=== PATIENT | male | born 1955 | race Caucasian/White ===

== ENCOUNTER 2016-12-16 11:24 | Emergency (ER) | payer OTHER ==
[2016-12-16] MEDS ORDERED: Lidocaine 2% Jelly 10 ML Urojet MUCMEM ONE (12:17)
[2016-12-16 13:04] VITALS: BP 138/87
--- NOTE | 2016-12-16 13:16 | EDM.PDOC ---
ED HPI GENERAL MEDICAL PROBLEM - General Chief Complaint: Genitourinary Problem Stated Complaint: NEEDS A CATH Time Seen by Provider: 12/16/16 12:45 Source of Information: Reports: Patient History Limitations: Reports: No Limitations - History of Present Illness INITIAL COMMENTS - FREE TEXT/NARRATIVE: Cristino is a 61 year old male with rectal tumor and urethral compression who presents to the ED today with c/o urinary retention. Patient has been self cathing but this has been increasingly painful the last 2 days. Patient was instructed to presents to the ED per his primary for elkins catheter insertion. Patient denies any other c/o today. - Related Data Allergies Allergy/AdvReac Type Severity Reaction Status Date / Time No Known Allergies Allergy Verified 12/16/16 12:02 Home Meds: Home Meds Omeprazole 12/16/16 [History] Zolpidem Tartrate [Ambien] 12/16/16 [History] Past Medical History Genitourinary History: Reports: Hydronephrosis Oncologic (Cancer) History: Reports: Renal - Past Surgical History HEENT Surgical History: Reports: Adenoidectomy, Tonsillectomy GI Surgical History: Reports: Appendectomy Social & Family History - Tobacco Use Smoking Status *Q: Never Smoker ED ROS GENERAL - Review of Systems Review Of Systems: ROS reveals no pertinent complaints other than HPI. ED EXAM, RENAL/ - Physical Exam Exam: See Below Exam Limited By: No Limitations General Appearance: Alert, WD/WN, No Apparent Distress Ears: Normal External Exam Throat/Mouth: Normal Inspection Respiratory/Chest: No Respiratory Distress Cardiovascular: Regular Rate, Rhythm GI/Abdominal: Normal Bowel Sounds, Soft, Non-Tender (Male) Exam: Normal Inspection, Deferred Rectal (Males) Exam: Normal Exam Neurological: Alert, Oriented, CN II-XII Intact Skin Exam: Warm, Dry, Intact Lymphatic: No Adenopathy Course - Vital Signs Text/Narrative:: Cristino is a 61 year old male with a hx of rectal tumor that is putting pressure on his urethra making urination next to impossible, he has been self cathing with increased pain the last 2 days. Please refer to HPI and focused exam. Patient on exam is well hydrated, he is non-toxic appearing. Elkins placed by RN without difficulty, draining clear urine. UA with few WBC's no leukocyte esterase. Patient given elkins care instructions, follow up with PCP on Saturday, discharged in stable condition. Last Recorded V/S: Last Vital Signs Temp 37 C 12/16/16 13:02 Pulse 63 12/16/16 13:02 Resp 16 12/16/16 13:02 BP 138/87 12/16/16 13:02 Pulse Ox 97 12/16/16 13:02 - Orders/Labs/Meds Orders: Active Orders 24 hr Category Date Time Status Elkins Catheter Insertion [Insert Urinary Catheter] [OM. Care 12/16/16 12:30 Ordered PC] Q24H Urinary Catheter Assessment [RC] ASDIRECTED Care 12/16/16 12:17 Active Labs: Laboratory Tests 12/16/16 Range/Units 12:50 Urine Color Yellow Urine Appearance Clear Urine pH 6.0 (4.5-8.0) Ur Specific Spray 1.020 (1.008-1.030) Urine Protein 30 H (NEGATIVE) mg/dL Urine Glucose (UA) Normal (NEGATIVE) mg/dL Urine Ketones 15 H (NEGATIVE) mg/dL Urine Occult Blood Moderate (NEGATIVE) Urine Nitrite Negative (NEGAITVE) Urine Bilirubin Negative (NEGATIVE) Urine Urobilinogen Normal (NORMAL) mg/dL Ur Leukocyte Esterase Negative (NEGATIVE) Urine RBC 5-10 H (0-5) Urine WBC 5-10 H (0-5) Ur Epithelial Cells Rare Amorphous Sediment Not seen Urine Bacteria Not seen Urine Mucus Not seen Meds: Medications Discontinued Medications Generic Name Dose Route Start Last Admin Trade Name Freq PRN Reason Stop Dose Admin Lidocaine HCl 10 ml 12/16/16 12:17 12/16/16 13:17 Xylocaine 2% Jelly MUCMEM 12/16/16 12:18 10 ml ONETIME ONE Administration Departure - Departure Time of Disposition: 13:30 Disposition: Home, Self-Care 01 Condition: Good Clinical Impression: Urinary retention - Discharge Information Instructions: Elkins Catheter Care, Adult Referrals: PCP,None [Primary Care Provider] - Forms: ED Department Discharge Additional Instructions: Call primary on Saturday for follow up. - My Orders Last 24 Hours: My Active Orders 12/16/16 12:17 Urinary Catheter Assessment [RC] ASDIRECTED 12/16/16 12:30 Elkins Catheter Insertion [Insert Urinary Catheter] [OM.PC] Q24H - Assessment/Plan Last 24 Hours: My Active Orders 12/16/16 12:17 Urinary Catheter Assessment [RC] ASDIRECTED 12/16/16 12:30 Elkins Catheter Insertion [Insert Urinary Catheter] [OM.PC] Q24H
== END 2016-12-16 12:58 | disposition home or self-care (01) ==
LOC: JP.ED 11:24
DX: R33.9 Retention of urine, unspecified (principal); Z98.890 Other specified postprocedural states; Z85.528 Personal history of other malignant neoplasm of kidney
CPT/HCPCS: 51702; 81001; 99284-25

== ENCOUNTER 2018-03-17 22:57 | Emergency (ER) | payer OTHER ==
[2018-03-17 23:13] VITALS: BP 136/81
[2018-03-17] MEDS ORDERED: Lidocaine 2% Jelly 10 ML Urojet MUCMEM ONE (23:13)
[2018-03-17] MEDS ORDERED: Lidocaine 2% Jelly 10 ML Urojet ONE (23:13)
--- NOTE | 2018-03-17 23:52 | EDM.PDOC ---
ED HPI GENERAL MEDICAL PROBLEM - General Chief Complaint: Genitourinary Problem Stated Complaint: ABD PAIN Time Seen by Provider: 03/17/18 23:45 Source of Information: Reports: Patient, Family, RN Notes Reviewed History Limitations: Reports: No Limitations - History of Present Illness INITIAL COMMENTS - FREE TEXT/NARRATIVE: 62-year-old gentleman presents to the emergency department today with complaint of urinary retention, he has a history of renal cancer has recently had stent placement with a Beal catheter placement the Beal was out for proximally 60 hours and then developed lower abdominal pain and discomfort with urinary retention Abdominal Pain Score (Numeric/FACES): 3 - Related Data Allergies Allergy/AdvReac Type Severity Reaction Status Date / Time No Known Allergies Allergy Verified 03/17/18 23:22 Home Meds: Home Meds Omeprazole 20 mg PO TID 12/16/16 [History] Zolpidem Tartrate [Ambien] 5 mg PO BEDTIME 12/16/16 [History] Gabapentin [Neurontin] 300 mg PO TID 03/17/18 [History] Levofloxacin 500 mg PO DAILY 03/17/18 [History] Loperamide HCl [Imodium A-D] 2 mg PO BID 03/17/18 [History] Ondansetron [Ondansetron ODT] 4 mg PO Q4H PRN 03/17/18 [History] Oxybutynin Chloride 5 mg PO DAILY 03/17/18 [History] Prochlorperazine Maleate 10 mg PO Q6H PRN 03/17/18 [History] Tamsulosin HCl 0.4 mg PO DAILY 03/17/18 [History] oxyCODONE 5 mg PO ASDIRECTED 03/17/18 [History] Past Medical History Gastrointestinal History: Reports: Chronic Diarrhea, GERD Genitourinary History: Reports: Hydronephrosis, Renal Calculus, UTI, Recurrent Psychiatric History: Reports: Anxiety, Depression Immunologic History: Reports: Other (See Below) Other Immunologic History: receives chemo every two weeks, last session 2017 next session to be determined with onocology tomorrow Oncologic (Cancer) History: Reports: Renal - Infectious Disease History Infectious Disease History: Reports: Measles, Mononucleosis - Past Surgical History HEENT Surgical History: Reports: Adenoidectomy, Tonsillectomy GI Surgical History: Reports: Appendectomy, Other (See Below) Other GI Surgeries/Procedures: rectalectomy Male Surgical History: Reports: Ureteral Stent Social & Family History - Tobacco Use Smoking Status *Q: Never Smoker - Caffeine Use Caffeine Use: Reports: Coffee - Alcohol Use Days Per Week of Alcohol Use: 4 Number of Drinks Per Day: 1 Total Drinks Per Week: 4 - Recreational Drug Use Recreational Drug Use: No ED ROS GENERAL - Review of Systems Review Of Systems: See Below Constitutional: Denies: Fever, Chills : Reports: Urinary Retention ED EXAM, RENAL/ - Physical Exam Exam: See Below Text/Narrative:: Initial abdominal exam by nursing staff revealed a distended bladder initial bladder scan around 700 mL of fluid full catheter was placed did provide instant relief and comfort, on my exam abdomen is soft and nontender Exam Limited By: No Limitations General Appearance: Alert, WD/WN, No Apparent Distress Course - Vital Signs Last Recorded V/S: Last Vital Signs Temp 94.7 F L 03/17/18 23:29 Pulse 88 03/17/18 23:29 Resp 16 03/17/18 23:29 BP 136/81 03/17/18 23:29 Pulse Ox 98 03/17/18 23:29 - Orders/Labs/Meds Orders: Active Orders 24 hr Category Date Time Status Beal Catheter Insertion [Insert Urinary Catheter] [OM. Care 03/17/18 23:15 Ordered PC] Q24H Urinary Catheter Assessment [RC] ASDIRECTED Care 03/17/18 23:10 Active Meds: Medications Discontinued Medications Generic Name Dose Route Start Last Admin Trade Name Jose Manuel PRN Reason Stop Dose Admin Lidocaine HCl 10 ml 03/17/18 23:13 Xylocaine 2% Jelly MUCMEM 03/17/18 23:14 ONETIME ONE Lidocaine HCl Confirm 03/17/18 23:13 Xylocaine 2% Jelly Administered 03/17/18 23:14 Dose 10 ml .ROUTE .STK-MED ONE Departure - Departure Time of Disposition: 23:52 Disposition: Home, Self-Care 01 Condition: Fair Clinical Impression: Urinary retention - Discharge Information Referrals: PCP,None [Primary Care Provider] - Additional Instructions: Please contact your urologist tomorrow for further instructions on catheter care , call return to the emergency department worsening of symptoms - My Orders Last 24 Hours: My Active Orders 03/17/18 23:10 Urinary Catheter Assessment [RC] ASDIRECTED 03/17/18 23:15 Beal Catheter Insertion [Insert Urinary Catheter] [OM.PC] Q24H - Assessment/Plan Last 24 Hours: My Active Orders 03/17/18 23:10 Urinary Catheter Assessment [RC] ASDIRECTED 03/17/18 23:15 Beal Catheter Insertion [Insert Urinary Catheter] [OM.PC] Q24H Plan: Assessment Acuity = acute Site and laterality = urinary retention Etiology = unclear etiology Manifestations = none Location of injury = Home Lab values = none Plan Discharged home with Beal catheter in place he will contact urology tomorrow for further instructions This note was dictated using [employer] voice recognition software please call with any questions on syntax or grammar.
== END 2018-03-18 00:12 | disposition home or self-care (01) ==
LOC: JP.ED 22:57
DX: R33.9 Retention of urine, unspecified (principal); Z79.899 Other long term (current) drug therapy
CPT/HCPCS: 51702; 51798; 99283-25